=== PATIENT | female | born 1980 | race Caucasian/White ===

== ENCOUNTER 2020-04-15 06:40 | Day surgery (SDC) | payer SELFPAY, OTHER ==
--- NOTE | 2020-04-14 12:28 | PCM.HP.BLA ---
History and Physical Date of Admission: 04/15/20 Surgical History and Physical Corine Nash, a 40 year old female 3 0 0 0 3, presents for Cerclage on April 15, 2020 at 8:30. -- Cervical Incompetence -- Corine is here as a referral from Dr. Chacho Denney d/t incompetent cervix. 13+ weeks gestation. 2 prior C-Sections, cerclage with last . Incompetent cervix. Corine claims it started during normal activity It occurs all the time. It is located in the cervix. Corine characterizes the quality asymptomatic. Severity is 3 cm at 26 weeks geatation; Additional comments are: first went to 39 weeks and had for FTP; Second with asymptomatic dilation to 3 cm at 26 weeks gestation and rescue cerclage performed then R- at 39 weeks gestation. MEDICATIONS HISTORY: Patient is also takin. PN Vitamin, 1 po daily ALLERGIES: NKDA Infections - Chicken pox Illnesses - no serious past illnesses Accidents - no injuries of consequence Hospitalizations - see surgery Review of Systems: GENERAL - Denies fever, or chills SKIN - Denies skin changes EYES - Denies visual changes EARS - Denies difficulty hearing NOSE - Denies nasal congestion or bleeding MOUTH - Denies sore throat or difficulty swallowing NECK - Denies pain or swelling RESPIRATORY - Denies shortness of breath or wheezing CARDIOVASCULAR - Denies palpitations or chest pain GASTROINTESTINAL - Denies nausea, vomiting, diarrhea, constipation GENITOURINARY - Denies dysuria, frequency of urination, incontinence of urine MUSCULOSKELETAL - Denies joint or muscle pain NEUROLOGICAL - Denies localized numbness or weakness PSYCHIATRIC - Denies depression or anxiety ENDOCRINE - Denies heat or cold intolerance, weight loss or gain HEMATO-IMMUNOLOGIC - Denies excessive bleeding with cuts SOCIAL HISTORY: Alcohol Use - None Smoking - Never Diet - moderate, balanced diet Lifestyle - low stress lifestyle and Exercise - active Seat Belt Use - always 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 MENSTRUAL HISTORY: LMP Known?- Definite Amount/Duration - normal amount and 5 to 7 days, Regularity - Regular, Frequency - 25 days, LMP - 01/19/20, Age Onset Menarche - 12 PAST PREGNANCIES: Total Pregnancies - 4; Full Term Pregnancies - 3; Premature - 0; Abortions, Induced - 0; Abortions, Spontaneous - 0; Ectopics - 0; Multiple Births - 0; Living Children - 3 SURGICAL HISTORY: 1. 11/07/2004 ; Dr. Deshpande - 2. 08/16/2004 Cerlage ; Dr. Deshpande - 3. 04/15/2003 ; Dr. Brown - 4. 09/14/2008 ; Tyson Braxton M.D. - 5. 01/20/2008 Cerclage ; Tyson Braxton M.D. - PHYSICAL EXAM BP- 118/86 Sitting, Right arm, regular cuff Temp- 97.8 Taken Orally Weight- 131.00 lbs CONSTITUTIONAL - NAD, well nourished, and well developed SKIN - No rash, lesions, or ulcers HEENT - Normocephalic, PERRLA, EOMI NECK - no nodes, no nuchal rigidity and thyroid normal size and texture LYMPH NODES - Palpation of lymph nodes in neck and groins within normal limits LUNGS - CTA x2 without wheezes, crackles or rales CARDIAC - Regular rate and rhythm without rubs, murmurs, or gallops ABDOMEN - Without hepatosplenomegaly, distention, masses, rebound, or guarding; normal bowel sounds, no hernias and positive FHTs EXTREMITIES - No edema or calf tenderness NEUROLOGICAL - Cranial nerves II-XII grossly intact PSYCHIATRIC - A and O to time, place, person, mood and affect ASSESSMENT/PLAN: 1. Incompetence Of Cervix Discussed history at length leading to dx of incompetent cx. Discussed RBAs of surgery and will proceed with Cerclage. All questions answered. Procedure Criteria Procedure Type: Essential Procedure Essential: Yes Criteria Statement: On 02/03/2020 the [place] Department of [facility] ([facility]) Public Order signed by [facility] Director Zuleima Romo M.D., regarding the Management of Non-Essential Surgeries and Procedures for the purpose of preserving Personal Protective Equipment (PPE) and critical hospital capacity and resources within [place] went into effect as of 02/04/2020 at 5:00PM. According to the [facility] Public Order: This action will remain in full force and effect until the State of Emergency declared by the Governor no longer exists or the Director of the [facility] rescinds or modifies this Order. This [facility] order stated all non-essential or elective surgeries and procedures that utilize PPE should be delayed unless there is undue risk to the current or future health of a patient. After reviewing the aforementioned [facility] Public Order and the patient's clinical case, I have determined that the scheduled procedure meets the criteria to go forward. Risk to Patient if Procedure Delayed: Risk of rapidly worsening to severe symptoms if delayed
[2020-04-15] VITALS (7 sets, daily range): BP systolic 109–126; BP diastolic 74–81; PULSE 70–88; RESP 15–18; TEMP 36.4–37.1; O2SAT 96–98; BMI 26.9
[2020-04-15] MEDS: Lactated Ringers 1,000 ML 100 ML IV (07:00)
[2020-04-15 07:12] LABS: Hematocrit 43.2 % (37-47); Hemoglobin 13.8 g/dL (12.0-15.0); Mean Corp Hgb Conc 31.9 g/dL (32-36); Mean Corpuscular Hgb 26.6 pg (27.0-32.0); Mean Corpuscular Volume 83.2 fL (81-99); Mean Platelet Vol. 9.3 fl (6.2-12.0); Platelet Count 247 K/mm3 (150-450); RBC Distribution Width CV 16.1 % (11.6-14.6); RBC Distribution Width SD 49.3 fl (35.1-43.9); Red Blood Count 5.19 M/mm3 (4.2-5.4); White Blood Count 3.8 K/mm3 (4.4-11.0)
[2020-04-15 07:37] LABS: International Normalized Ratio 0.9
[2020-04-15 07:38] LABS: Partial Thromboplast Time 27.5 Seconds (24.1-36.2)
--- NOTE | 2020-04-15 08:54 | PCM.OPRPT ---
Report of Operation Date of Procedure: 04/15/20 Pre-Operative Diagnosis: Incompetent Cervix Post-Operative Diagnosis: Incompetent Cervix Surgery/Procedure Performed:: Cervical Cerclage Description of Surgical Findings:: 13+ week intrauterine with heart tones noted before and after the procedure with bedside ultrasound. Normal-appearing cervix with evidence of prior cervical cerclages. Cervix was closed and long before beginning the procedure with a small amount of discharge at the cervical os. Type of Anesthesia:: MAC Anesthesiologist: Chuy Castillo Estimated Blood Loss (mL): Minimal Fluids Replaced: Crystalloid Description of Procedure: Surgeon: Tyson Braxton MD, FACOG Indications: This is a 40 year old patient who is approximately 13 to 14 weeks gestation with a history of incompetent cervix. In fact she has had 3 prior cervical cerclages. The patient has been counseled regarding the risk and indications of this procedure including the possibility of bleeding, infection, and injury to surrounding structures such as bowel bladder as well as injury to an intrauterine resulting in miscarriage. All questions were answered and we consider the patient well-informed. Procedure: The patient was taken to the operating room where after induction of IV sedation, she was placed in the dorsolithotomy position and prepped and draped in the usual sterile fashion. The cervix was gently grasped with a Mongolian forcep and a single 2-0 Ethibond suture was placed at 10:00, 7:00, 4:00, 2:00, and 11:00 and tied at 11:00. An excellent result was noted with a single suture. Patient tolerated procedure well was taken to recovery room in satisfactory condition sponge instrument and needle counts were all reportedly correct. Estimated blood loss for the case was minimal. heart tones were noted to be present as well as movement both before and after the procedure with normal fluid noted as well. Complications: None Grafts/Implants Used: None - Complications None - Admit VTE Documentation VTE Present on Admission: Yes VTE Mechan Device Prophylaxis: SCD's
--- NOTE | 2020-04-15 09:02 | DCINST_ITS ---
Discharge Diet: No Restrictions Discharge Activity: Return to Normal Activity, May Shower, May Take a Tub Bath May resume sexual activity in: - - After has ended Lifting Restrictions: 25 pounds for the duration of the Call your doctor if you observe: Fever of 101 or Higher, Inability to urinate, Inability to have a bowel movement, Using more than one pad per hour, - - Increasing abdominal pain or contractions Additional Instructions: Cerclage should be removed at approximately 36 to 37 weeks gestation Allergies/Adverse Reactions: Allergies No Known Allergies Allergy (Verified 04/15/20 06:53) Medications to take at Discharge Labetalol [Trandate] 50 mg PO BID 04/13/20 Multivitamin with Minerals [Multiple Vitamin] 1 ea PO DAILY 04/13/20 Primary Care Physician: Jeffrey Bear MD [Primary Care Provider] - Test Results: Test results from this visit will be discussed in further detail at your follow- up appointment, if applicable. Please Follow Up With: Tyson Braxton MD When: 3 to 4 weeks
== END 2020-04-15 10:16 | disposition home or self-care (01) ==
LOC: SDC 06:46 → AC 06:47
PROVIDERS: PCP Family Medicine; Referring Provider Obstetrics & Gynecology; Visit Provider Obstetrics & Gynecology
PROC: 0UVC7ZZ Restriction of Cervix, Via Natural or Artificial Opening (ICD-10-PCS; CPT 57700; principal; 2020-04-15 08:10)
DX: O34.31 Maternal care for cervical incompetence, first trimester (principal); O16.1 Unspecified maternal hypertension, first trimester; Z3A.13 13 weeks gestation of pregnancy; Z87.59 Personal history of other complications of pregnancy, childbirth and the puerperium; Z11.59 Encounter for screening for other viral diseases
CPT/HCPCS: 59320; 36415; 85027; 85610; 85730; 86850; 86900; 86901; 87635; G2023; J7120; J2405; U0004

== ENCOUNTER 2020-05-26 11:25 | Inpatient (IN) | payer OTHER, SELFPAY ==
[2020-04-15 07:04] VITALS: BMI 26.9
[2020-05-26] VITALS (14 sets, daily range): BP systolic 117–140; BP diastolic 75–82; PULSE 70–85; TEMP 36.6–37.1; O2SAT 96–97; BMI 30.1
[2020-05-26] MEDS: Lactated Ringers 1,000 ML 50 ML IV (11:50)
[2020-05-26 12:15] LABS: Absolute Lymphocyte Count 0.83 X10^3/uL (0.83-4.51); Absolute Neutrophil Count 4.9 X10^3/uL (2.0-7.7); Basophil# 0.03 X10^3/uL; Basophil% 0.5 % (0-1); Eosinophil# 0.05 X10^3/uL; Eosinophils% 0.8 % (0-5); Hematocrit 41.5 % (37-47); Hemoglobin 13.8 g/dL (12.0-15.0); Lymphocyte # 0.83 X10^3/ul (4.0); Lymphocyte % 13.2 % (19-41); Mean Corp Hgb Conc 33.3 g/dL (32-36); Mean Corpuscular Volume 84.3 fL (81-99); Mean Platelet Vol. 9.5 fl (6.2-12.0); Monocyte# 0.41 X10^3/uL; Monocyte% 6.5 % (0-10); NRBC Flagged by Analyzer 0 % (0-5); Neutrophil # 4.88 X10^3/uL (2.7-7.7); Neutrophil % 77.7 % (47-70); Platelet Count 228 K/mm3 (150-450); RBC Distribution Width CV 17.4 % (11.6-14.6); RBC Distribution Width SD 51.8 fl (35.1-43.9); Red Blood Count 4.92 M/mm3 (4.2-5.4); White Blood Count 6.3 K/mm3 (4.4-11.0)
[2020-05-26] MEDS: miSOPROStol 200 MCG Tablet PO (12:50)
[2020-05-26] MEDS: Acetaminophen 325 MG Tablet PO (16:54)
[2020-05-26] MEDS: fentaNYL 100 MCG/2 ML Ampul IV ×2 (17:01→17:36)
[2020-05-26] MEDS: Oxytocin 30 units/NS 500 ml 30 UNITS/500 ML IV.SOLN 334 UNITS IV (18:41)
[2020-05-26] MEDS: Methylergonovine 0.2 MG/ML Ampul IM (19:10)
--- NOTE | 2020-05-26 19:21 | PCM.HP.BLA ---
History and Physical Date of Admission: 05/26/20 ACOG ANTEPARTUM RECORD - HISTORY AND PHYSICAL (05/26/2020) Name: CORINE MALCOLM History of This : This is a 40-year-old 4 para 3 patient who presents at 19+ week gestation with a demise which occurred at approximately 15+ weeks gestation. care is remarkable for 3 prior sections and a repeat section was planned. Patient also had a cerclage placed at approximately 13 to 14 weeks gestation. Patient began having some bleeding during the night and she presented to the office and heart tones were noted to be absent. Cerclage was removed and given that the patient was having bleeding with the cervix approximately 1 to 2 cm dilated she was sent to labor and delivery for immediate Cytotec induction. OB Physician: CHAY Richfield's Physician: Isadora Ortega ...................................................................... : 1980 Age: 40 Address: [address] [place] [address] Phone: H) [phone] (O) [phone] Insurance Carrier: [facility] [id number] Emergency Contact: JOSE MANUEL GARZA/MOM [phone] ...................................................................... 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 130/90 0 157 tr - 1+ 50 -2 May 04 JMW 4 16 + O 124/86 sl 157 tr - March 31 JMW 4 U+ ? 142/82 0 154 tr - ANTEPARTUM NOTE(S): May 26 2020: demise, cerclage removed; induce May 04 2020: Doing Well Apr 13 2020: Pre-op/Cerclage, Nausea/Fatigue Better, change EDC COMPREHENSIVE ANTEPARTUM NOTE(S): May 26 2020: Corine is being seen for PNV. Pt had systems integration analyst msg this morning with Ramona regarding some light bleeding. Pt states it is red- brownish when wiping. Pt did have a cerclage earlier in . Long dips shows trs protein, 5.0 pH, +++blood, specific gravity, and all others are negative. AM May 04 2020: Doing well. Positive FHTs. Return 4 weeks for PNV. Apr 13 2020: Corine presents here today for PNV and Pre-op for Cerclage with MELISSA at [facility] on 04-26-20. 40 y.o. G 4 P 3 non-smoker reports nausea and fatigue are better. Questions answered and consents signed. SILVINO Mar 31 2020: TELEHEALTH NOB visit today. Corine is a 40 year old with an NESTOR of 10/25/2020, and her current GA is 10 w 2 d. PNV and US planned at [facility]. She states that she is feeling well, denies N/V. She resides with her second , Glen, and she has three daughters form her previous marriage, All of her daughters were delivered by C/S at [facility], and she plans to have a repeat C/S at [facility]. Past history updated. She plans to breastfeed, discussed office class as a refresher. She had labs and pap was collected last week at [facility]. Corine also states that her B/P was elevated that visit, and Dr. Richard Bear placed her on Labetolol (200 MG ONE TAB BID), she states that the Labetolol made her feel terrible, so she discontinued use and states that she feels better now; this was discussed with Dr. Braxton per this RN, and no new orders were given. Corine denies a hx of HTN. Corine has a hx of needing cerclages with last two pregnancies and she will have another this . She is a life [id number] and denies use of drugs or ETOH. She denies a history of depression/anxiety. States stress level in general is currently 2-3 out of 5. She will need NOB paperwork completed at her first PNV, and is aware of what this entails. Office practice patterns reviewed, including how to contact the office both during and after office hours for emergencies, emergency/danger signs to report, and and common OTC medications approved/not approved for use during . Corine states that she eats a fairly well balanced diet, but feels that she could decrease intake of empty calories. water and dietary needs reviewed, including caloric needs, limiting caffeine to one cup a day, limiting empty calories, and recommended weight gain. Round ligament oain discussed. Reporting a suspected UTI reviewed. Lifting restrictions for discussed ( she will discuss restriction with lifting/activity for cerclage with Dr. Braxton). Corine states that she understands all information provided during 35 minute NOB visit, and that she has no questions following same. AW REVIEW OF SYSTEMS: GENERAL - Denies fever, or chills SKIN - Denies rash, new skin lesions, or change in moles EYES - Denies blurred vision, or change in visual acuity EARS - Denies ear pain, or difficulty hearing NOSE - Denies nasal congestion, discharge, or bleeding MOUTH - Denies sore throat, or difficulty swallowing NECK - Denies pain or swelling RESPIRATORY - Denies shortness of breath, cough, wheezing CARDIOVASCULAR - Denies palpitations, chest pain, orthopnea, PND, peripheral edema, syncope or claudication GASTROINTESTINAL - Denies nausea, vomiting, diarrhea, constipation, Denies abdominal pain, melena and or bright red blood GENITOURINARY - Denies dysuria, frequency of urination, urgency, or hesitancy MUSCULOSKELETAL - Denies joint or muscle pain, or back pain NEUROLOGICAL - Denies localized numbness, weakness, or tingling PSYCHIATRIC - Denies depression, anxiety, substance abuse or suicide attempts ENDOCRINE - Denies heat or cold intolerance, weight loss or gain, increasing thirst HEMATO-IMMUNOLOGIC - Denies easy bruising, bleeding, oral ulcerations or recurrent infections GENETICS SCREENING: Age 35+ years: Yes Thalassemia: No Neural Tube Defect: No Down Syndrome: No EDGAR-SACHS: No Sickle Cell Disease: No Hemophilia: No Musc. Dystrophy: No Cystic Fibrosis: No-declines screening Cook Chorea: No Mental Retardation: No Fragile X: No Other genetic: No Other defects: No SABs/still births: No Drugs since LMP: No INFECTION HISTORY: High risk AIDS: No High risk Hepatitis: No Exposed to TB: No Exposed to Herpes: No Rash/viral illness since LMP: No History of STD: No MENSTRUAL HISTORY: *Menses Amount/Duration: normal amount and 5 to 7 daysMenses Regularity: RegularFrequency: 25Menarche (Age Onset): 12* PAST SUMMARY: PARITY: 1. Total Pregnancies............ 4 2. Full Term Pregnancies........ 3 3. Premature.................... 0 4. Abortions - Induced.......... 0 5. Abortions - Spontaneous...... 0 6. Ectopics..................... 0 7. Multiple Births.............. 0 8. Living Children.............. 3 PAST #1: Date of :.................. 04/15/03 Gestation Weeks:................ 39 Length of labor(hours):......... 10 Sex:............................ F Weight-lbs:............... 8 Weight-oz:................ 8 Type of Delivery:............... C-Sect Type of Anesthesia:............. Epidural Place of Delivery:.............. [facility] Treatment of Labor?:.... no Comment: CPD PAST #2: Date of :.................. 11/07/04 Gestation Weeks:................ 39 Length of labor(hours):......... 0 Sex:............................ F Weight-lbs:............... 7 Weight-oz:................ 7 Type of Delivery:............... C-Sect Type of Anesthesia:............. Spinal Place of Delivery:.............. [facility] Treatment of Labor?:.... No Comment: CERCLAGE PAST #3: Date of :.................. 09/14/08 Gestation Weeks:................ 39 Length of labor(hours):......... 0 Sex:............................ F Weight-lbs:............... 7 Weight-oz:................ 15 Type of Delivery:............... C-Sect Type of Anesthesia:............. Spinal Place of Delivery:.............. [facility] Treatment of Labor?:.... No Comment: CERCLAGE PHYSICAL EXAMINATION General Appearence: 40 yo female in no acute distress Vital Signs: AF, VSS Heart: RRR without rubs or gallops Lungs: CTA x 2 Breasts: deferred Abdomen: gravid Pelvis: Cervix: 1 to 2 cm / 50% Presentation: cephalic Station: -2 Fetus: Size: AGA Movement: present Heart: Absent by Doppler and ultrasound Labs for : CORINE MALCOLM since 01/23/2020 ORDER DATEIN DESCRIPTION VALUE UNITS RANGE A+ COMMENT TYPE AND SCREEN - PAT ONLY 04/15/20 Surgery Date: 04/15/20 Reason for Laboratory Test preop Surgery Date: 04/15/20 Hx of Preganancy in last 3 Months Yes Ever experience any problems with transfusion(s)? N Hx of Transfusion in last 3 Months N Reason for Type AND Screen/Red Cells: SURGERY Time: 0000 SURGICAL PROCEDURE: cerclage [facility]~[address] [place], [address]~ BLOOD TYPE GEL A POSITIVE N ANTIBODY SCREEN NEGATIVE N Reviewed by VITO PARTIAL THROMBOPLAST TIME 04/15/20 NOTE Original Ordering Provider: Vito Braxton PTT 27.5 Seconds 24.1-36.2 Reviewed by VITO PROTHROMBIN TIME W/INR 04/15/20 NOTE Original Ordering Provider: Vito Braxton PROTIME 12.0 SECONDS 11.7-14.9 INR 0.9 Reviewed by VITO CBC-COMPLETE BLOOD CNT NO DIFF 04/15/20 NOTE Original Ordering Provider: Vito Braxton WBC 3.8 K/mm3 4.4-11.0 L RBC 5.19 M/mm3 4.2-5.4 HGB 13.8 g/dL 12.0-15.0 HCT 43.2 % 37-47 MCV 83.2 fL 81-99 MCH 26.6 pg 27.0-32.0 L MCHC 31.9 g/dL 32-36 L RDW CV 16.1 % 11.6-14.6 H RDW SD 49.3 fl 35.1-43.9 H PLT 247 K/mm3 150-450 MPV 9.3 fl 6.2-12.0 Reviewed by VITO LOONEY SARS-COV-2 (COVID 19) RT-PCR 04/14/20 NOTE Original Ordering Provider: Burton Isbell COVID 19 Normal Reference Range: Not Detected Method:(RT-PCR) real-time reverse transcriptase PCR Luminex Innova Instrument *The Food and Drug Administration (FDA) has issued an Emergency Use Authorization (EAU) for the EDIS SARS-CoV-2 Assay for the rapid detection of the virus that causes COVID-19. This test has been validated, but the FDAs independent review of this validation is pending. *Negative results do not preclude infection and should not be used as the sole basis for treatment or patient management. Optimum specimen types and timing for peak viral levels during infections caused by SARS-CoV-2 have not been determined. Collection of multiple specimens from the same patient may be necessary to detect the virus. The possibility of a false negative result should be considered if the patient has clinical presentation or has had recent exposure. SARS-CoV-2 (COVID 19) Not Detected Reviewed by VITO [facility] 03/25/20 Blood Type A Rh Type POSITIVE Antibody Screen NEGATIVE Negative Hemoglobin Initial OB 13.1 Hematocrit Initial OB 40.0 PLT 270 Rubella IMMUNE Immune VDRL NON-REACTIVE Non Reactive Urine Protein TRACE Negative Urine Glucose NEG Negative Reviewed by VITO Impression /Plan: 19+ week intrauterine with demise. Plan Cytotec induction. Preparations in progress for delivery.
--- NOTE | 2020-05-26 19:29 | DCINST_ITS ---
Discharge Diet: No Restrictions Discharge Activity: May Shower, May Take a Tub Bath May resume sexual activity in: 4 weeks Additional Activity Instructions:: Nothing in the vagina for 4-6 weeks. You may return to work/school in 6 weeks. Call your doctor if you observe: Fever of 101 or Higher, Inability to urinate, Inability to have a bowel movement, Using more than one pad per hour Additional Instructions: If you experience any of the following, contact your healthcare provider. * Bleeding that soaks a pad every hour for 2 hours * Fever 100.4 or higher * Unrelieved incision or abdominal pain * Swelling, redness, discharge or bleeding from your incision or episiotomy site * Your incision begins to separate * Problems urinating (including inability to urinate or burning while urinating). * Visual changes * Severe headache * Flu-like symptoms * Pain or redness in one of both of your breasts * Pain, warmth, tenderness or swelling in your legs, especially the calf area * Frequent nausea and vomiting * Symptoms of depression or anxiety If you experience any of the following, call 911 or go to the nearest Emergency Room. * Chest pain * Problems breathing * Seizure activity * Partial or complete paralysis of a body part, slurred speech, weakness or drooping of the face, or a sudden inability to walk or hold your balance Allergies/Adverse Reactions: Allergies No Known Allergies Allergy (Verified 04/15/20 06:53) Medications to take at Discharge Labetalol [Trandate] 50 mg PO BID 04/13/20 Multivitamin with Minerals [Multiple Vitamin] 1 ea PO DAILY 04/13/20 Please Follow Up With: Tyson Braxton MD - [phone] When: Call to make an appointment with your doctor in 4-6 weeks. Primary Care Physician: Jeffrey Bear MD [Primary Care Provider] - Test Results: Test results from this visit will be discussed in further detail at your follow- up appointment, if applicable.
--- NOTE | 2020-05-26 19:29 | PCM.DCVAG ---
Discharge Diet: No Restrictions Discharge Activity: May Shower, May Take a Tub Bath May resume sexual activity in: 4 weeks Additional Activity Instructions:: Nothing in the vagina for 4-6 weeks. You may return to work/school in 6 weeks. Call your doctor if you observe: Fever of 101 or Higher, Inability to urinate, Inability to have a bowel movement, Using more than one pad per hour Additional Instructions: If you experience any of the following, contact your healthcare provider. Bleeding that soaks a pad every hour for 2 hours Fever 100.4 or higher Unrelieved incision or abdominal pain Swelling, redness, discharge or bleeding from your incision or episiotomy site Your incision begins to separate Problems urinating (including inability to urinate or burning while urinating). Visual changes Severe headache Flu-like symptoms Pain or redness in one of both of your breasts Pain, warmth, tenderness or swelling in your legs, especially the calf area Frequent nausea and vomiting Symptoms of depression or anxiety If you experience any of the following, call 911 or go to the nearest Emergency Room. Chest pain Problems breathing Seizure activity Partial or complete paralysis of a body part, slurred speech, weakness or drooping of the face, or a sudden inability to walk or hold your balance Allergies/Adverse Reactions: Allergies No Known Allergies Allergy (Verified 04/15/20 06:53) Medications to take at Discharge Labetalol [Trandate] 50 mg PO BID 04/13/20 Multivitamin with Minerals [Multiple Vitamin] 1 ea PO DAILY 04/13/20 Please Follow Up With: Tyson Braxton MD - [phone] When: Call to make an appointment with your doctor in 4-6 weeks. Primary Care Physician: Jeffrey Bear MD [Primary Care Provider] - Test Results: Test results from this visit will be discussed in further detail at your follow-up appointment, if applicable.
--- NOTE | 2020-05-26 19:31 | PCM.OPRPT ---
Vaginal Delivery Maternal Presentation: Medically Indicated Induction - Demise 19+ weeeks; 15+ week size baby Method of Induction: Cytotec Medical Reason for Induction: demise Amniotic Membrane Rupture Type: Spontaneous Amniotic Fluid Description: - - hu johnson Final NESTOR: 10/19/20 Final NESTOR Source: [place] <20 weeks Gestational age: 19 Weeks and 1 Days Date of Procedure: 05/26/20 Pre-Operative Diagnosis: Demise Post-Operative Diagnosis: Demise; Cord Catastrophe Surgery/ Procedure Performed: Spontaneous Vaginal Delivery Type of Anesthesia: None Description of Procedure: Spontaneous vaginal delivery of a nonviable male with no Apgars assigned with cord around neck x3 extremely tight. Cord around baby's neck was likely cause of demise. Baby appeared somewhat macerated and was in agreement with 15-week gestation size. Umbilical cord was ligated and speculum placed in the vagina and ring forcep was used to extract the majority of the placenta. Under ultrasound guidance remaining placenta was removed with a banjo curette. Ancef 2 g IV given after the procedure. Sponges okay. Delivery physician: Tyson Braxton MD. Presentation: Vertex Placental Delivery Description: Manual Removal, Curettage Placenta Disposition: [facility] Cord Entanglement: - - Around neck x3 extremely tight; likely because of loss. Estimated Blood Loss: 350 cc Infant A gender: Male Episiotomy Description: None Laceration: None Medications given after delivery: IV Pitocin Complications: None
[2020-05-26] MEDS: Cefazolin 2 GM in 0.9% Normal Saline 100 ML IV (20:21)
--- NOTE | 2020-05-26 22:52 | NURSING ---
05/26/20202014 demise-wt=5.8oz/0.165kg, length=22cm
== END 2020-05-26 23:00 | disposition home or self-care (01) | DRG 807 ==
LOC: WP 11:37
PROVIDERS: Admitting Provider Obstetrics & Gynecology; PCP Family Medicine; Visit Provider Obstetrics & Gynecology
DX: O02.1 Missed abortion (principal); Z37.1 Single stillbirth; O69.1XX0 Labor and delivery complicated by cord around neck, with compression, not applicable or unspecified; O34.219 Maternal care for unspecified type scar from previous cesarean delivery; Z3A.19 19 weeks gestation of pregnancy
CPT/HCPCS: 59050; 85025; 86850; 86900; 86901; 99218; J7120; G0378